=== PATIENT | male | born 1955 | race Caucasian/White ===

== ENCOUNTER 2023-04-20 10:17 | Emergency (ER) | payer BC, SELFPAY ==
[2023-04-20 10:24] VITALS: BP 201/120; PULSE 65; RESP 18; TEMP 36.7; O2SAT 98; BMI 27.5
--- NOTE | 2023-04-20 10:30 | ED.ABDPAIN ---
HPI - Abdominal Pain General Time Seen by Provider: 10:30 Date Seen: 04/20/23 Chief Complaint: Abdominal Pain Stated Complaint: Lower L side/back pain Time Seen by Provider: 04/20/23 10:30 Source: patient and RN notes reviewed Mode of arrival: ambulatory Limitations: no limitations History of Present Illness HPI narrative: Stephan is a very pleasant 67-year-old male with history of hyperlipidemia currently on atorvastatin who comes to the emergency room after having experienced significant left flank pain. Patient notes that this morning he had a small stinging sensation at the end of his penis when he was urinating. He did not notice anything abnormal about his urine and there was no blood. He notes that he started feeling some pressure or sensation in his left flank/left side back earlier today in the while they were at [place] it was increasing. It got to a 7/10 and was associated with nausea and near vomiting. It has now lessened and he is approximately a 1.5 her 2/10. He does note that it feels like it is radiating into his left groin. Perhaps it has even become a little more localized to the left groin. He notes no fever. He has not had kidney stone in the past. He does note for the past 2 days he has been experiencing diarrhea. Onset 2 days ago without blood and had become fairly watery. Today however he had a small bowel movement that was normal. Related Data Home Medications Medication Instructions Recorded Confirmed atorvastatin 20 mg tablet 20 mg PO DAILY 04/20/23 04/20/23 Previous Rx's Medication Instructions Recorded hydrocodone 5 mg-acetaminophen 325 1 tab PO Q4-6H PRN pain #10 tabs 04/20/23 mg tablet tamsulosin 0.4 mg capsule (Flomax) 0.4 mg PO DAILY #3 caps 04/20/23 Allergies Allergy/AdvReac Type Severity Reaction Status Date / Time No Known Drug Allergies Allergy Verified 04/20/23 10:26 Review of Systems Status of ROS Reports: 10 or more systems reviewed and unremarkable except as noted in History and below Const Denies: fever or chills Eyes Denies: change in vision ENMT Denies: neck pain Denies: painful urination, urinary frequency or blood in urine Musculo Denies: neck pain PFSH PFSH Social History How often do you have a drink containing alcohol: never AUDIT-C Alcohol total score: 0 Exam Narrative: Exam Narrative: Alert and oriented. Very well-spoken gentleman in no acute distress. External ears eyes nose clear. Heart with regular rate and rhythm and lungs are clear bilaterally. Abdomen soft. Moving all extremities. Hitting the bottom of the foot does not increase discomfort. Const: Vital Signs, click to edit/add: Vital Signs - 24 hr 04/20/23 10:24 04/20/23 11:42 04/20/23 13:09 Temperature 98.0 F Pulse Rate [Right Pulse Oximeter] 65 Respiratory Rate 18 18 Blood Pressure [Ri ght Upper Arm] 201/120 H 174/105 H 173/105 H Pulse Oximetry 98 Oxygen Delivery Me thod Room Air Documenting provider has reviewed patient's vital signs: yes Course Course ED Course: At this time diarrhea which patient had been experiencing is actually improving. He does however have symptoms strongly suggestive of a kidney stone. Since the pain has improved significantly and patient has not had opportunity to urinate since that time I suggest urinalysis with a strainer. If we see a stone I think we can allow patient to be discharged home. If we do not would recommend CBC and basic panel for kidney function as well as discussion regarding need for CT. Patient and his are appears fine with this plan. Reevaluation(s) Reevaluation #1: Patient noted to have urinalysis and there were no stones evident in the strainer. Proceed with CT of the abdomen and pelvis without contrast. Will also check CBC and basic panel. Reevaluation #2: Patient noted to have increasing pain mainly localized now to the left lower quadrant. Ibuprofen 600 mg ordered. Vital Signs Vital signs: Initial Vital Signs Temperature 98.0 F 04/20/23 10:24 Temperature Source Temporal Artery Scan 04/20/23 10:24 Pulse Rate 65 04/20/23 10:24 Respiratory Rate 18 04/20/23 10:24 Blood Pressure 201/120 H 04/20/23 10:24 Blood Pressure Mean 147 H 04/20/23 10:24 Blood Pressure Position Sitting 04/20/23 10:24 Pulse Oximetry 98 04/20/23 10:24 Oxygen Delivery Method Room Air 04/20/23 10:24 Vital Signs Temperature 98.0 F 04/20/23 10:24 Pulse Rate 65 04/20/23 10:24 Respiratory Rate 18 04/20/23 10:24 Blood Pressure 201/120 H 04/20/23 10:24 Pulse Oximetry 98 04/20/23 10:24 Oxygen Delivery Method Room Air 04/20/23 10:24 Temperature 98.0 F 04/20/23 10:24 Pulse Rate 65 04/20/23 10:24 Respiratory Rate 18 04/20/23 11:42 Blood Pressure 173/105 H 04/20/23 13:09 Pulse Oximetry 98 04/20/23 10:24 Oxygen Delivery Method Room Air 04/20/23 10:24 Medications Administered Medications: Discontinued Medications Generic Name Dose Route Start Last Admin Trade Name Nestor PRN Reason Stop Dose Admin Ibuprofen 600 mg 04/20/23 12:26 04/20/23 12:32 Ibuprofen 200 Mg Tablet PO 04/20/23 12:27 600 mg ONCE ONE Administration MDM - Abdominal Pain MDM Narrative Medical decision making narrative: 1. Ureteral colic with nephrolithiasis-patient noted to have waxing and waning symptoms. At this point no stone production but will send a strainer and urine cup home as I do expect this 2 mm stone to pass without complications. Urinalysis with microscopic hematuria but no evidence of UTI. Ibuprofen may be used as needed for discomfort. I did send Vicodin 09/3250 tab p.o. q.4 hours p.r.n. 10. With no refills to the pharmacy in the event patient has increasing discomfort not relieved by ibuprofen. He is advised to continue to monitor and if this stone should pass he should not need this medication. Additionally, patient given Flomax 0.4 mg p.o. and additional doses of 3 tablets sent to the pharmacy should again patient not passed stone and he is having continued discomfort. Advised patient to follow-up next week with his primary MD with potential urological consultation if he still is experiencing pain and has not passed the stone. No evidence of UTI and urinalysis today but do recommend returning or seeking medical attention for fever, vomiting, worsening symptoms. 2. Incidental findings-on CT patient is noted to have infrarenal AAA measuring 3.2 cm. Recommend follow-up with primary MD for ultrasound scheduling. Prostatomegaly also noted. Diverticulosis without diverticulitis also noted. 3. Disposition-home at this time. Return for vomiting, fever, worsening symptoms. Lab Data Attestation: I reviewed the patient's lab results. Labs: Lab Results 04/20/23 04/20/23 Range/Units 10:39 11:19 WBC 5.52 (4.50-11.00) K/uL RBC 5.02 (4.30-5.90) m/uL Hgb 15.3 (13.5-17.5) gm/dL Hct 45.5 (37.0-53.0) % MCV 91 (80-100) fL MCH 31 (26-34) pg MCHC 34 (32-36) gm/dL RDW Coeff of Mac 12.6 (11.5-15.5) % Plt Count 200 (140-440) K/uL Neut % (Auto) 57.9 (42.0-72.0) % Lymph % (Auto) 29.2 (20-44) % [place] % (Auto) 9.1 (0.0-11.0) % Eos % (Auto) 2.4 (0.0-7.0) % Baso % (Auto) 0.5 (0.0-3.0) % Neut # (Auto) 3.20 (1.7-7.0) K/uL Lymph # (Auto) 1.61 (0.90-2.90) K/uL [place] # (Auto) 0.50 (0.00-0.90) K/UL Eos # (Auto) 0.13 (0.00-0.50) K/uL Baso # (Auto) 0.03 (0.00-0.30) K/uL Abs Immat Gran (auto) 0.05 (0.00-0.30) K/uL Imm/Tot Granulo (auto) 0.9 % Sodium 141 (135-149) mmol/L Potassium 4.3 (3.6-5.1) mmol/L Chloride 107 (96-114) mmol/L Carbon Dioxide 26 (20-32) mmol/L Anion Gap 8 (7-15) mEq/L BUN 18 (7-30) mg/dL Creatinine 1.1 (0.5-1.5) mg/dL Estimated Creat Clear 76.82 Estimated GFR 73 ml/min Glucose 120 H (60-115) mg/dL Calcium 9.1 (8.4-10.6) mg/dL Urine Color Yellow (Yellow) Urine Appearance Clear (Clear) Urine pH 5.0 (5.0-8.5) Ur Specific [place] >= 1.030 (1.000-1.030) Urine Protein Negative (Negative) Urine Glucose (UA) Negative (Negative) Urine Ketones Negative (Negative) Urine Blood 3+ A (Negative) Urine Nitrite Negative (Negative) Urine Bilirubin Negative (Negative) Urine Urobilinogen 0.2 (0.2-1.0) Ur Leukocyte Esterase Negative (Negative) Urine RBC 10-25 A (0-2) Urine WBC 0-2 (0-5) Ur Squamous Epith Cells Few (None-Few) Urine Bacteria None (None) Imaging Data CT scan - abdomen: Attestation: I have reviewed the pertinent imaging results. My impression: Hydronephrosis noted. Questionable small stone distal ureter. Radiologist's impression: Lower chest: Scattered atelectasis. Tiny hiatal hernia. Liver: Hepatic steatosis. No suspicious masses. Gallbladder and bile ducts: No stones or inflammation. No biliary dilatation. Pancreas: Unremarkable. No mass or inflammation. Spleen: Normal in size. No masses. Adrenal glands: Normal in size. No nodules. Kidneys: Mild left-sided hydroureteronephrosis secondary to 2 millimeter obstructing left UVJ stone. Additional punctate left nonobstructing renal stone. GI tract: Colonic diverticulosis. Normal in caliber. No sign of mass or inflammation. Normal appendix. Vasculature: Moderate aortoiliac arterial calcifications. Mild infrarenal abdominal aortic aneurysm measuring 3.2 centimeters. Lymph nodes: No lymphadenopathy. Peritoneum/Abdominal Wall: Unremarkable. No sign of mass or infiltration. No free air or significant free fluid. Pelvis: Prostatomegaly. No pelvic masses. Mildly distended bladder. Bones: Right hip arthroplasty causing streak artifact. IMPRESSION: Mild left-sided hydroureteronephrosis secondary to 2 millimeter obstructing left UVJ stone. Additional punctate nonobstructing left renal stone. Colonic diverticulosis without diverticulitis. Mild infrarenal abdominal aortic aneurysm measuring 3.2 centimeters. Prostatomegaly. Discharge Plan Discharge Clinical Impression: Colic, ureteral, Left nephrolithiasis Patient Disposition: Home, Self-Care Condition: Improved Instructions: Renal Colic (ED) Additional Instructions: Ibuprofen or Tylenol may be used for pain control. If necessary, hydrocodone/Tylenol also known as Vicodin is sent to your pharmacy. Please use sparingly if needed. If you do not pass the stone today and you still have pain,, please follow-up with your primary MD for recheck next week. I would also request that you continue on Flomax. 3 additional doses were sent to your pharmacy. If you do passed the stone please take that with you in a urine cup to your physician for evaluation. You will also need to follow-up as your CT detected an aneurysm in the abdomen. Please return to the emergency room for vomiting, increasing pain, worsening symptoms especially fever and as needed. Prescriptions: New tamsulosin [Flomax] 0.4 mg capsule 0.4 mg PO DAILY Qty: 3 2RF hydrocodone-acetaminophen 5-325 mg tablet 1 tab PO Q4-6H PRN (Reason: pain) Qty: 10 0RF No Action atorvastatin 20 mg tablet 20 mg PO DAILY Follow Up/Referrals: Provider,Not a Local [Primary Care Provider] - Stand Alone Forms: [employer] Info Instructions
[2023-04-20 11:04] LABS: Appearance Urine Clear (Clear); Bilirubin Urine Negative (Negative); Blood Urine 3+ (Negative); Color Urine Yellow (Yellow); Glucose Urine Negative (Negative); Ketones Urine Negative (Negative); Leukocyte Esterase Urine Negative (Negative); Nitrite Urine Negative (Negative); Protein Urine Negative (Negative); Specific Gravity Urine >= 1.030 (1.000-1.030); Urobilinogen Urine 0.2 (0.2-1.0)
--- NOTE | 2023-04-20 11:05 | CRLHL7_ITS ---
For Patients: As a result of the Century Cures Act, medical imaging exams and procedure reports are released immediately into your electronic medical record. You may view this report before your referring provider. If you have questions, please contact your health care provider. INDICATION: Left flank pain with dysuria. TECHNIQUE: CT abdomen and pelvis without contrast. COMPARISON: None. FINDINGS: Lower chest: Scattered atelectasis. Tiny hiatal hernia. Liver: Hepatic steatosis. No suspicious masses. Gallbladder and bile ducts: No stones or inflammation. No biliary dilatation. Pancreas: Unremarkable. No mass or inflammation. Spleen: Normal in size. No masses. Adrenal glands: Normal in size. No nodules. Kidneys: Mild left-sided hydroureteronephrosis secondary to 2 millimeter obstructing left UVJ stone. Additional punctate left nonobstructing renal stone. GI tract: Colonic diverticulosis. Normal in caliber. No sign of mass or inflammation. Normal appendix. Vasculature: Moderate aortoiliac arterial calcifications. Mild infrarenal abdominal aortic aneurysm measuring 3.2 centimeters. Lymph nodes: No lymphadenopathy. Peritoneum/Abdominal Wall: Unremarkable. No sign of mass or infiltration. No free air or significant free fluid. Pelvis: Prostatomegaly. No pelvic masses. Mildly distended bladder. Bones: Right hip arthroplasty causing streak artifact. IMPRESSION: Mild left-sided hydroureteronephrosis secondary to 2 millimeter obstructing left UVJ stone. Additional punctate nonobstructing left renal stone. Colonic diverticulosis without diverticulitis. Mild infrarenal abdominal aortic aneurysm measuring 3.2 centimeters. Prostatomegaly. Please note that all CT scans at this facility use dose modulation, iterative reconstruction, and/or weight-based dosing when appropriate to reduce radiation dose to as low as reasonably achievable. Dictated by Dmitriy Osorio MD @ 04/20/2023 12:17:33 PM (Electronically Signed)
--- NOTE | 2023-04-20 11:09 | ED.NURSE ---
no stone noted in urine strainer
[2023-04-20 11:15] LABS: Squamous Epithelial Cell Urine Few (None-Few); WBC Urine 0-2 (0-5)
[2023-04-20 11:26] LABS: Basophils Absolute Auto 0.03 K/uL (0.00-0.30); Basophils Percent Auto 0.5 % (0.0-3.0); Eosinophils Absolute Auto 0.13 K/uL (0.00-0.50); Eosinophils Percent Auto 2.4 % (0.0-7.0); Hematocrit 45.5 % (37.0-53.0); Hemoglobin* 15.3 gm/dL (13.5-17.5); Immature Granulocytes Abs Auto 0.05 K/uL (0.00-0.30); Immature Granulocytes Pct Auto 0.9 %; Lymphocytes Absolute Auto 1.61 K/uL (0.90-2.90); Lymphocytes Percent Auto 29.2 % (20-44); Mean Corpuscular HGB Conc 34 gm/dL (32-36); Mean Corpuscular Hemoglobin 31 pg (26-34); Mean Corpuscular Volume 91 fL (80-100); Monocytes Percent Auto 9.1 % (0.0-11.0); Neutrophils Percent Auto 57.9 % (42.0-72.0); Platelet Count* 200 K/uL (140-440); RDW Coefficient of Variation % 12.6 % (11.5-15.5); Red Blood Count 5.02 m/uL (4.30-5.90); White Blood Count* 5.52 K/uL (4.50-11.00)
[2023-04-20 11:29] LABS: Slide Review Reflex No
[2023-04-20 11:39] LABS: Chloride* 107 mmol/L (96-114); Potassium* 4.3 mmol/L (3.6-5.1); Sodium* 141 mmol/L (135-149)
[2023-04-20 11:42] VITALS: BP 174/105; RESP 18
[2023-04-20 11:42] LABS: Anion Gap 8 mEq/L (7-15); Blood Urea Nitrogen* 18 mg/dL (7-30); Carbon Dioxide* 26 mmol/L (20-32); Creatinine* 1.1 mg/dL (0.5-1.5); Est. Creatinine Clearance* 76.82; Estimated Glomerular Filt Rate 73 ml/min; Glucose* 120 mg/dL (60-115)
[2023-04-20 11:43] LABS: Calcium* 9.1 mg/dL (8.4-10.6)
[2023-04-20] MEDS: IBUPROFEN 200 MG TABLET 600 MG PO (12:32)
[2023-04-20 13:09] VITALS: BP 173/105
== END 2023-04-20 13:08 | disposition home or self-care (01) ==
PROVIDERS: Emergency Provider Family Medicine
DX: N13.2 Hydronephrosis with renal and ureteral calculous obstruction (principal)
CPT/HCPCS: 36415; 74176; 80048; 81001; 85025; 99284; A9270